=== PATIENT | female | born 1970 | race African-American/Black ===

== ENCOUNTER 2024-12-14 05:27 | Day surgery (SDC) | payer OTHER ==
[2024-12-12 11:07] VITALS: BMI 36.0
[2024-12-14] MEDS ORDERED: LIDOCAINE HCL 1%, 10 MG/ML (20ML VIAL) ONE (11:28)
[2024-12-14] MEDS ORDERED: ISOSULFAN BLUE 50 MG/5 ML VIAL SQ ONE (11:29)
[2024-12-14] MEDS ORDERED: MIDAZOLAM HCL 2 MG/2 ML SINGLE DOSE VIAL ONE (11:42)
[2024-12-14] MEDS ORDERED: PROPOFOL 20 ML ONE ×3 (11:42→13:25)
[2024-12-14] MEDS ORDERED: ceFAZolin SODIUM 1 GM VIAL ONE (13:15)
[2024-12-14] MEDS ORDERED: methylPREDNISolone ACET (DEPO) 80 MG/1 ML VIAL ONE (13:44)
[2024-12-14] MEDS ORDERED: methylPREDNISolone NA SUCC 125 MG/2 ML VIAL ONE (13:45)
[2024-12-14] MEDS: LIDOCAINE HCL 1%, 10 MG/ML (20ML VIAL) NR ONE (14:04)
[2024-12-14] MEDS ORDERED: ONDANSETRON 4 MG/2 ML VIAL IVPUSH PRN (15:00)
[2024-12-14] MEDS ORDERED: LACTATED RINGERS SOLUTION 1,000 ML IV SCH (15:00)
[2024-12-14] MEDS: oxyCODONE HCL 5 MG TABLET PO PRN (16:37)
[2024-12-14 17:02] VITALS: RESP 18
[2024-12-14 17:06] VITALS: BP 137/80; PULSE 73; TEMP 97.3
== END 2024-12-14 18:13 | disposition home or self-care (01) ==
LOC: JASU-SURG 05:27
PROVIDERS: ATTEND Surgery
PROC: 0HBU0ZX Excision of Left Breast, Open Approach, Diagnostic (ICD-10-PCS; principal; 2024-12-14 13:50)
DX: D24.2 Benign neoplasm of left breast (principal); R92.0 Mammographic microcalcification found on diagnostic imaging of breast
CPT/HCPCS: 19281; 76098-TC-FY; 88307-TC; 88341-TC; 88342-TC; 94760